=== PATIENT | male | born 1995 | race Hispanic/Latino ===

== ENCOUNTER 2022-05-03 17:30 | Emergency (ER) | payer OTHER, SELFPAY ==
[~2022-05-03] VITALS: Ht 165.1 cm; Wt 95.5 kg
[2022-05-04 01:24] VITALS: BP 132/81
== END 2022-05-04 02:41 | disposition home or self-care (01) ==
LOC: M ED 17:30
DX: J06.9 Acute upper respiratory infection, unspecified (principal)

== ENCOUNTER 2023-02-08 05:49 | Emergency (ER) | payer OTHER ==
[~2023-02-08] VITALS: Ht 167.6 cm; Wt 98.5 kg
[2023-02-08 06:47] LABS: RSV AMPLIFICATION NEGATIVE (NEGATIVE)
[2023-02-08] MEDS: IBUPROFEN 800 MG TAB PO ONE (08:10)
[2023-02-08] MEDS: ACETAMINOPHEN 325 MG TAB PO ONE (08:11)
[2023-02-08 09:22] VITALS: BP 132/87; TEMP 102.5; O2SAT 100
== END 2023-02-08 09:23 | disposition home or self-care (01) ==
LOC: M ED 05:49
DX: U07.1 COVID-19 (principal); J09.X2 Influenza due to identified novel influenza A virus with other respiratory manifestations; I10 Essential (primary) hypertension